=== PATIENT | male | born 1990 | race Caucasian/White ===

== ENCOUNTER 2022-01-10 17:17 | Emergency (ER) | payer MEDICAID, SELFPAY ==
--- NOTE | 2022-01-10 | ECG_ITS ---
Test Reason : SYNCOPE Blood Pressure : / mmHG Vent. Rate : 091 BPM Atrial Rate : 091 BPM P-R Int : 128 ms QRS Dur : 094 ms QT Int : 358 ms P-R-T Axes : 058 032 -05 degrees QTc Int : 440 ms Normal sinus rhythm Nonspecific T wave abnormality Abnormal ECG When compared with ECG of 09-JAN-2019 19:37, No significant change was found Referred By: Generic ED Physician Electronically Signed By:DARRYL MENG
--- NOTE | ~2022-01-10 | CT_ITS ---
EXAMINATION: CT HEAD WITHOUT CONTRAST CLINICAL INFORMATION: Syncope COMPARISON: None TECHNIQUE: Contiguous axial imaging was performed from the skull base to vertex without intravenous administration of contrast. This CT examination was performed using dose optimization techniques as appropriate, variously including the following: *Automated exposure control *Adjustment of mA and/or kV according to patient size (this includes techniques or standardized protocols for targeted exams where dose is matched to indication/reason for exam; i.e. extremities or head) *Use of iterative reconstruction technique DLP: 752 mGy-cm FINDINGS: There is no evidence of acute intracranial hemorrhage or territorial infarction. No abnormal mass effect or midline shift is seen. [place] to white matter differentiation is well preserved. No extra-axial fluid collections are identified. The ventricles are normal in size. There is no abnormal attenuation within the brain parenchyma. The osseous structures and soft tissues are normal. The mastoid air cells and visualized portions of the paranasal sinuses are well aerated. CT/CT head/brain wo con IMPRESSION: No acute intracranial pathology.
--- NOTE | ~2022-01-10 | CT_ITS ---
EXAMINATION: CT ANGIOGRAM OF THE CHEST WITH AND WITHOUT CONTRAST (CT PULMONARY ANGIOGRAM FOR PE) CLINICAL INFORMATION: Reason for Exam syncope, tachycardia COMPARISON: None TECHNIQUE: Prior to contrast administration, noncontrast localization images were obtained. Subsequently, multidetector volumetric imaging was performed from the thoracic inlet to below the diaphragms following the administration of 80 mL Omnipaque 350 intravenous contrast. No contrast reaction reported Sagittal, coronal, and MIP oblique sagittal reformatted images were obtained on the CT workstation, uploaded to PACS, and reviewed. This CT examination was performed using dose optimization techniques as appropriate, variously including the following: *Automated exposure control *Adjustment of mA and/or kV according to patient size (this includes techniques or standardized protocols for targeted exams where dose is matched to indication/reason for exam; i.e. extremities or head) *Use of iterative reconstruction technique Total exam dose-length product 285 mGy-cm FINDINGS: QUALITY OF STUDY/CONTRAST BOLUS: Mildly limited. There is nearly as much contrast in the aorta as the pulmonary arteries PULMONARY ARTERIES: No convincing evidence of a filling defect to suggest a pulmonary embolism. There is no evidence for septal bowing. There is no significant reflux into the hepatic veins. The thoracic inlet is within normal limits. There is no bulky central adenopathy. The partially visualized upper abdominal structures are grossly within normal limits. Imaging the lung h[place]. Right lung; There is no infiltrate or effusion. Left lung; Mild atelectasis in the lingula. No significant infiltrate or effusion. Review of the bone windows does not show a suspicious finding. CT/CT angio chest PE protocol IMPRESSION: No filling defect to suggest a pulmonary embolism. No significant infiltrate or effusion. VTE: negative
[2022-01-10 17:20] VITALS: BP 124/78; PULSE 101; RESP 20; TEMP 36.8; O2SAT 96; BMI 46.0
[2022-01-10 17:33] LABS: MANUAL DIFF FLAG NO
[2022-01-10 17:34] LABS: Basophils Percent Auto 0.3 % (0-2); Eosinophils Absolute Auto 0.1 X10*3/uL (0.0-0.4); Eosinophils Percent Auto 0.6 % (0-4); Hematocrit 44.1 % (42.0-52.0); Hemoglobin 14.7 g/dl (14.0-18.0); Imm Gran Abs Auto 0.02 X10*3/uL (0.00-0.03); Imm Gran Pct Auto 0.2 % (0.0-0.4); Lymphocytes Absolute Auto 2.8 X10*3/uL (1.2-4.9); Lymphocytes Percent Auto 29.3 % (20-40); Mean Corpuscular HGB Conc 33.3 g/dl (31.0-36.0); Mean Corpuscular Hemoglobin 27.8 pg (27.0-33.0); Mean Corpuscular Volume 83.5 fL (80.0-98.0); Monocytes Absolute Auto 0.5 X10*3/uL (0.1-1.2); Monocytes Percent Auto 5.2 % (2-11); Neutrophils Absolute Auto 6.1 x10*3/uL (2.0-8.3); Neutrophils Percent Auto 64.4 % (45-73); Platelet Count 262 X10*3/uL (160-400); Red Blood Count 5.28 X10*6/uL (4.60-5.80); Red Cell Distribution Width 13.9 % (11.0-16.0); White Blood Count 9.4 X10*3/uL (4.8-10.8)
[2022-01-10 17:49] LABS: Anion Gap 12 (12-20); Blood Urea Nitrogen 16 mg/dL (9-16); Calcium 8.8 mg/dL (8.4-10.2); Carbon Dioxide 24 mmol/L (22-29); Chloride 107 mmol/L (96-108); Creatinine Clr Calc Pharmacy 136.7; Estimated Glomerular Filt Rate > 60; Glucose Random 121 mg/dL (60-115); Potassium 4.1 mmol/L (3.3-5.1); Sodium 139 mmol/L (135-145)
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
[2022-01-10 20:26] LABS: Appearance Urine CLEAR; Color Urine YELLOW; Glucose Urine UA NEG (NEG); Leukocyte Esterase Urine NEG (NEG); Nitrite Urine NEG (NEG); Specific Gravity - Urine >= 1.030 (1.005-1.025); Urine Blood NEG (NEG); Urine Ketones NEG (NEG); Urine Protein TRACE MG/DL (NEG-TRACE)
[2022-01-10 20:36] LABS: Ethanol < 10 mg/dL
[2022-01-10 20:39] LABS: Alanine Aminotransferase 35 U/L (0-40); Albumin Level 4.1 g/dL (3.5-5.0); Alkaline Phosphatase 66 U/L (39-117); Aspartate Amino Transferase 22 U/L (5-37); Bilirubin Direct 0.3 mg/dL (0.0-0.5); Bilirubin Total 0.7 mg/dL (0.0-1.0); Lipase 30 U/L (8-78); Total Protein 8.4 g/dL (6.5-8.0)
[2022-01-10 20:40] LABS: Amphetamine Screen Urine Not Detected (Not Detect); Barbiturates, Urine Not Detected (Not Detect); Benzodiazepines Screen Urine Not Detected (Not Detect); Cannabinoid Screen Urine Not Detected (Not Detect); Cocaine Screen Urine Not Detected (Not Detect); Fentanyl, urine Not Detected (Not Detect); Opiate Screen Urine Not Detected (Not Detect); Phencyclidine Screen Urine Not Detected (Not Detect)
[2022-01-10 20:41] VITALS: O2SAT 97
[2022-01-10] MEDS: iohexoL 350 MG/ML 100 ML INFUS..BTL IV (21:07)
[2022-01-10 22:37] VITALS: BP 120/72; PULSE 98; RESP 16; TEMP 36.6; O2SAT 98
== END 2022-01-10 22:46 | disposition home or self-care (01) ==
PROVIDERS: Emergency Provider Emergency Medicine
DX: R55 Syncope and collapse (principal); R00.0 Tachycardia, unspecified
CPT/HCPCS: 36410; 36415; 70450; 71275; 80048; 80076; 80307; 81003; 82077; 83690; 85025; 93005; 99284; Q9967

== ENCOUNTER 2022-01-24 11:51 | Emergency (ER) | payer MEDICAID, SELFPAY ==
[2022-01-24 12:14] VITALS: BP 116/84; PULSE 115; RESP 16; TEMP 38; O2SAT 95; BMI 45.8
[2022-01-24] MEDS: Ibuprofen 600 MG TABLET PO (12:23)
[2022-01-24 12:48] LABS: COVID-19 Test Negative (Negative); IDNOW Serial# 16C4AD1C; Influenza A Negative (Negative); Influenza B2 Negative (Negative)
--- NOTE | 2022-01-24 13:16 | ED.GENADULT ---
HPI - General Adult General Chief complaint: Fever Stated complaint: lower back pain fever Time Seen by Provider: 01/24/22 12:48 Source: patient Mode of arrival: ambulatory Limitations: no limitations History of Present Illness HPI narrative: 31-year-old male presents to ED for headache, nausea, nausea, and back pain. Patient states fever this morning. patient denies any abdominal pain, nausea, emesis, flank pain, fever, coughing, sore throat, chest pain, shortness of breath, neck stiffnes dysuria, hematuria, , diarrhea, or recent trauma. patient denies any pmh of IV drug use or immunocomprimised diseases. Patient denies any urinary/bowel incontinence. Related Data Allergies Allergy/AdvReac Type Severity Reaction Status Date / Time No Known Allergies Allergy Verified 01/24/22 12:19 Review of Systems Review of Systems: headache, nausea, back pain, PMFSH Social History Social History Advance Directives: No Advance Directives Information Provided: Yes Physical Exam ED Vital Signs: Vital Signs - 24 hr 01/24/22 12:14 Temperature 100.4 F Pulse Rate 115 H Respiratory Rate 16 Blood Pressure 116/84 Pulse Oximetry 95 Oxygen Delivery Method Room Air BMI result Body Mass Index 45.8 Const General: cooperative, healthy appearing, comfortable, no acute distress, well developed, alert, awake and Physically active Orientation/consciousness: oriented to time and patient oriented x3 HENMT Head: Yes normal to inspection, Yes No palpable skull fracture present, Yes normocephalic, Yes atraumatic and No abrasion Ears: hearing grossly normal bilaterally, external ears normal, TM's normal bilaterally, EAC's normal, mastoids normal and no periauricular adenopathy Eyes Other: negative photophobia or nystatgmus General: appearance normal, both eyes and all related structures Neck Neck: Yes normal visual inspection, Yes full ROM, Yes no lymphadenopathy, Yes no meningeal signs, Yes trachea midline, Yes supple, No anterior neck swelling and No tender Chest Chest palpation & inspection: normal inspection of the chest and normal palpation of entire chest wall Resp Effort & Inspection: normal respiratory effort and able to speak in complete sentences Auscultation: clear to auscultation bilaterally Cardio Jugular venous distension: no JVD Heart sounds: S1 normal heart sound present and S2 normal heart sound present GI Inspection: Yes normal to inspection and No abdominal wall ecchymosis Palpation (GI): Soft to palpation, not firm, nontender, no guarding and not rigid General: No CVA tenderness and Yes no CVA tenderness Back/Spine/Pelvis Other: negative for spine tenderness. Back: no CVA tenderness, No CVA tenderness and No back tenderness Skin General skin exam: no rashes or lesions noted and elasticity normal Neuro General: oriented to time, patient oriented x3, gait normal, tone normal and no meningeal signs Cranial nerves: Yes CN's II-XII intact bilaterally Extrem General: Yes normal to inspection and Yes full ROM Psych Appearance: grossly normal, well kempt and not disheveled Course Course Course Narrative: COVID influenza was ordered and negative. Patient does not have risk factors for epidural abscess. Will add urine and strep test. Patient was appearing. Reevaluation(s) Reevaluation #1: Patient urine negative for any blood or infection. Strep test negative. Once again COVID influenza negative. Patient does not have any respiratory complaints and no chest x-ray indicated. Not suspecting epidural cauda equina syndrome. Patient has no past medical history of IV drug use or immunocompromised disease such as HIV or hep C. patient informed to follow with primary care provider. Patient form to get retested for COVID. Time: 14:23 Medical Decision Making [facility] Narrative Medical decision making narrative: Viral syndrome Lab Data Labs: Lab Results 01/24/22 01/24/22 01/24/22 Range/Units 12:21 12:21 13:16 Urine Color Urine Appearance Urine pH (5.0-8.0) Ur Specific [place] (1.005-1.025) Urine Protein (NEG-TRACE) MG/DL Urine Glucose (UA) (NEG) MG/DL Urine Ketones (NEG) MG/DL Urine Blood (NEG) Urine Nitrite (NEG) Ur Leukocyte Esterase (NEG) Urine RBC (0) /HPF Urine WBC (0-4) /HPF Ur Squamous Epith Cells /LPF Urine Bacteria /LPF Urine Mucus /LPF COVID-19 (CHERI) Negative (Negative) COVID-19 Clin Com See Note Influenza Type A (ELYSSA) Negative (Negative) Influenza Type B (ELYSSA) Negative (Negative) Influenza A & B Note See Note S. pyogenes GrpA ELYSSA Negative (Negative) 01/24/22 Range/Units 13:16 Urine Color YELLOW Urine Appearance CLEAR Urine pH 6.0 (5.0-8.0) Ur Specific [place] >= 1.030 H (1.005-1.025) Urine Protein 1+ H (NEG-TRACE) MG/DL Urine Glucose (UA) NEG (NEG) MG/DL Urine Ketones NEG (NEG) MG/DL Urine Blood NEG (NEG) Urine Nitrite NEG (NEG) Ur Leukocyte Esterase NEG (NEG) Urine RBC 0 (0) /HPF Urine WBC 0 (0-4) /HPF Ur Squamous Epith Cells TRACE /LPF Urine Bacteria NONE /LPF Urine Mucus 1+ /LPF COVID-19 (CHERI) (Negative) COVID-19 Clin Com Influenza Type A (ELYSSA) (Negative) Influenza Type B (ELYSSA) (Negative) Influenza A & B Note S. pyogenes GrpA ELYSSA (Negative) Discharge Plan Discharge Clinical Impression: Acute viral syndrome Patient Disposition: Home, Self-Care Instructions: Viral Syndrome (ED) Additional Instructions: Your COVID influenza and strep test came back negative. Urine came back negative. Recommend retesting for COVID in a couple of days. Return to the ED immediately ift having chest pain, shortness of breath, coughing, worsening back pain, urinary/bowel incontinence, intractable fever, abdominal pain, dysuria, hematuria, flank pain, or any other concerning symptoms. Motrin and Tylenol can be used over the counter for pain/fever relief. Stand Alone Forms: Work/School Release Interventions: ED Discharge Assessment Last Done: 01/24/22 14:42 Discharge Date/Time: 01/24/22 14:42 Print Language: Turk[place]
[2022-01-24 13:25] LABS: Appearance Urine CLEAR; Color Urine YELLOW; Glucose Urine UA NEG (NEG); Leukocyte Esterase Urine NEG (NEG); Nitrite Urine NEG (NEG); Specific Gravity - Urine >= 1.030 (1.005-1.025); UACC Culture Trigger NO; Urine Blood NEG (NEG); Urine Ketones NEG (NEG); Urine Protein 1+ MG/DL (NEG-TRACE)
[2022-01-24 13:45] LABS: Mucus Urine 1+ /LPF; RBC Urine 0 /HPF (0); Squamous Epithelial Cell Urine TRACE /LPF; WBC Urine 0 /HPF (0-4)
[2022-01-24 13:46] LABS: Strep A Nucleic Acid Negative (Negative)
== END 2022-01-24 14:42 | disposition home or self-care (01) ==
PROVIDERS: Physician Assistant; Emergency Provider Emergency Medicine; PCP Internal Medicine
DX: B34.9 Viral infection, unspecified (principal); Z20.822 Contact with and (suspected) exposure to COVID-19; R50.9 Fever, unspecified; M54.50 Low back pain, unspecified
CPT/HCPCS: 36415; 81001; 87502; 87635; 87651; 99283

== ENCOUNTER 2022-03-05 07:36 | Outpatient (REF) | payer MEDICAID, SELFPAY | END 2022-03-05 07:37 | disposition home or self-care (01) | LOC: HO.HOSX 07:36 | PROVIDERS: Visit Provider Physician Assistant | DX: Z13.89 Encounter for screening for other disorder (principal) ==